=== PATIENT | male | born 1965 | race Two or more races ===

== ENCOUNTER 2017-06-12 10:51 | Inpatient (IN) | payer BC, OTHER ==
[~2017-06-12] VITALS: Ht 167.6 cm; Wt 91.0 kg
[~2017-06-12 10:51] MED LIST: ASPI325T17 PO; ATOR40TA PO; EMPA10TA PO; GABA300C10 PO; IPRA4AER PO; METF500T9 PO; OMEP10CA4 PO
[2017-06-12] MEDS ORDERED: MIDAZOLAM 1 MG/ML, 2ML ONE ×2 (12:38→13:28)
[2017-06-12] MEDS ORDERED: FENTANYL PF 100 MCG/2ML ONE ×2 (12:38)
[2017-06-12 12:39] VITALS: BP 138/86
[2017-06-12] MEDS ORDERED: LACTATED RINGERS 1,000 ML IV SCH (12:39)
[2017-06-12] MEDS ORDERED: ONDANSETRON 2MG/ML, 2ML ONE ×2 (12:40→13:42)
[2017-06-12] MEDS ORDERED: DEXAMETHASONE 4 MG/ML, 1ML ONE ×2 (12:40→13:42)
[2017-06-12] MEDS ORDERED: PROPOFOL 10 MG/ML, 20ML ONE (12:40)
[2017-06-12] MEDS ORDERED: CEFAZOLIN 1,000 MG ONE ×2 (12:40→13:42)
[2017-06-12] MEDS ORDERED: PROTAMINE SULFATE 10 MG/ML, 5ML ONE (12:47)
[2017-06-12] MEDS ORDERED: THROMBIN 5,000 UNIT VIAL TP ONE (12:47)
[2017-06-12] MEDS ORDERED: BUPIVACAINE/PF 0.25% ONE (12:47)
[2017-06-12] MEDS ORDERED: HEPARIN 1,000 UNITS/ML, 10ML ONE (12:47)
[2017-06-12] MEDS ORDERED: EPINEPHRINE 1 MG/ML, 1ML ONE (12:48)
[2017-06-12] MEDS ORDERED: FENTANYL PF 250 MCG/5ML ONE (13:28)
[2017-06-12] MEDS ORDERED: LIDOCAINE 4%, 4 ML SYR/CANN TP ONE (13:42)
[2017-06-12] MEDS ORDERED: SUCCINYLCHOLINE 20 MG/ML, 10ML ONE (13:42)
[2017-06-12] MEDS ORDERED: FENTANYL PF 100 MCG/2ML IV PRN (16:00)
[2017-06-12] MEDS ORDERED: hydrALAzine 20 MG/ML, 1ML IV PRN ×2 (16:00→18:30)
[2017-06-12] MEDS ORDERED: ACETAMINOPHEN 325 MG TABLET PO PRN ×2 (16:00→18:30)
[2017-06-12] MEDS ORDERED: MIDAZOLAM 1 MG/ML, 2ML IV PRN (16:00)
[2017-06-12] MEDS ORDERED: LABETALOL 5MG/ML, 20ML IV PRN ×2 (16:00→18:30)
[2017-06-12] MEDS ORDERED: HYDROmorphone 1 MG/ML, 1ML IV PRN (16:00)
[2017-06-12] MEDS ORDERED: ONDANSETRON 2MG/ML, 2ML IVPush PRN (16:00)
[2017-06-12] MEDS ORDERED: ALBUTEROL/IPRATROPIUM 2.5MG/0.5MG, 3 ML NPPB PRN ×2 (16:00→20:00)
[2017-06-12] MEDS ORDERED: OXYcodone 5 MG/5 ML ORAL.SOL UDC PO PRN (16:00)
[2017-06-12] MEDS ORDERED: EPHEDRINE 50 MG/ML, 1ML IVPush PRN (16:00)
[2017-06-12] MEDS ORDERED: ASPIRIN 325 MG TABLET ONE (16:15)
[2017-06-12] MEDS ORDERED: OXYcodone 5 MG/5 ML ORAL.SOL UDC ONE (16:15)
[2017-06-12] MEDS ORDERED: ASPIRIN 325 MG TABLET EC PO ONE (16:30)
[2017-06-12] MEDS ORDERED: CLOPIDOGREL 75 MG TABLET PO ONE (16:30)
[2017-06-12] MEDS ORDERED: morphine SULFATE 10 MG/ML, 1ML IV PRN (18:30)
[2017-06-12] MEDS ORDERED: ONDANSETRON 2MG/ML, 2ML IV PRN (18:30)
[2017-06-12] MEDS: LACTATED RINGERS 1,000 ML IV SCH (18:30)
[2017-06-12] MEDS: ALBUTEROL/IPRATROPIUM 2.5MG/0.5MG, 3 ML NPPB SCH (19:50)
[2017-06-12 20:05] VITALS: BP 117/87
[2017-06-12] MEDS: SODIUM CHLORIDE FLUSH 10ML SYR IVF SCH (21:00)
[2017-06-12] MEDS: GABAPENTIN 300 MG CAPSULE PO SCH (21:33)
[2017-06-12] MEDS: ATORVASTATIN 40 MG TABLET PO SCH (21:33)
[2017-06-12] MEDS: CEFAZOLIN PMX 2GM/50ML 50 ML IVPB SCH (21:34)
[2017-06-12] MEDS: NICOTINE 7 MG/24 HR PATCH.TD24 TD SCH (21:34)
[2017-06-12] MEDS: INSULIN REGULAR, HUMAN 100 UNITS/ML, 3ML MEDIUM DOSE SS SQ-INSULIN SCH (22:06)
[2017-06-12 23:02] VITALS: BP 121/60
[2017-06-13] MEDS: ALBUTEROL/IPRATROPIUM 2.5MG/0.5MG, 3 ML NPPB SCH (00:30)
[2017-06-13 03:24] VITALS: BP 115/71
[2017-06-13 05:08] LABS: HEMATOCRIT 45.5 % (39.2-51.8); HEMOGLOBIN 15.4 g/dL (13.7-18.0); WHITE BLOOD COUNT 11.6 x10^3/uL (3.4-10)
[2017-06-13 05:27] LABS: BLOOD UREA NITROGEN 17 mg/dL (7-18)
[2017-06-13] MEDS: LACTATED RINGERS 1,000 ML IV SCH ×2 (05:47→11:54)
[2017-06-13] MEDS: CEFAZOLIN PMX 2GM/50ML 50 ML IVPB SCH (05:47)
[2017-06-13] MEDS: INSULIN REGULAR, HUMAN 100 UNITS/ML, 3ML MEDIUM DOSE SS SQ-INSULIN SCH ×4 (06:06→21:39)
[2017-06-13 06:47] VITALS: BP 129/80
[2017-06-13] MEDS: OMEPRAZOLE 10 MG CAPSULE.DR PO SCH (08:18)
[2017-06-13] MEDS: ASPIRIN 325 MG TABLET EC PO SCH (08:19)
[2017-06-13] MEDS: ENOXAPARIN 40 MG/0.4 ML SQ SCH (08:19)
[2017-06-13] MEDS: LISINOPRIL 10 MG TABLET PO SCH (08:19)
[2017-06-13] MEDS: GABAPENTIN 300 MG CAPSULE PO SCH ×2 (08:19→21:38)
[2017-06-13] MEDS: CLOPIDOGREL 75 MG TABLET PO SCH (08:19)
[2017-06-13] MEDS: EMPAGLIFLOZIN 20 MG HOMEMEDPO SCH (08:24)
[2017-06-13] MEDS: SODIUM CHLORIDE FLUSH 10ML SYR IVF SCH ×2 (08:24→21:39)
[2017-06-13] MEDS ORDERED: DIPHENHYDRAMINE 25 MG CAPSULE PO PRN (09:00)
[2017-06-13 12:53] VITALS: BP 99/60
[2017-06-13] MEDS: HYDROcodone/APAP 5/325 TABLET PO PRN ×2 (16:41→21:38)
[2017-06-13 20:07] VITALS: BP 94/60
[2017-06-13] MEDS: ATORVASTATIN 40 MG TABLET PO SCH (21:38)
[2017-06-13] MEDS: NICOTINE 7 MG/24 HR PATCH.TD24 TD SCH (21:40)
[2017-06-14 01:41] VITALS: BP 103/63
[2017-06-14] MEDS: HYDROcodone/APAP 5/325 TABLET PO PRN ×3 (01:41→16:19)
[2017-06-14] MEDS: LACTATED RINGERS 1,000 ML IV SCH (02:08)
[2017-06-14] MEDS: INSULIN REGULAR, HUMAN 100 UNITS/ML, 3ML MEDIUM DOSE SS SQ-INSULIN SCH ×3 (07:00→15:47)
[2017-06-14 07:54] VITALS: BP 108/73
[2017-06-14] MEDS: CLOPIDOGREL 75 MG TABLET PO SCH (08:50)
[2017-06-14] MEDS: OMEPRAZOLE 10 MG CAPSULE.DR PO SCH (08:50)
[2017-06-14] MEDS: GABAPENTIN 300 MG CAPSULE PO SCH (08:50)
[2017-06-14] MEDS: ASPIRIN 325 MG TABLET EC PO SCH (08:50)
[2017-06-14] MEDS: SODIUM CHLORIDE FLUSH 10ML SYR IVF SCH (08:51)
[2017-06-14] MEDS: EMPAGLIFLOZIN 20 MG HOMEMEDPO SCH (08:51)
[2017-06-14] MEDS: LISINOPRIL 10 MG TABLET PO SCH (08:51)
[2017-06-14] MEDS: ENOXAPARIN 40 MG/0.4 ML SQ SCH (08:51)
[2017-06-14] MEDS ORDERED: ASPI-496 PO (16:42)
[2017-06-14] MEDS ORDERED: HYDR-3237 PO (16:43)
[2017-06-14] MEDS ORDERED: CLOP75TA PO (16:43)
[2017-06-14] MEDS ORDERED: DOCU240C53 PO (16:45)
[2017-06-14] MEDS ORDERED: NICO-485 TD (16:46)
== END 2017-06-14 17:10 | disposition home or self-care (01) | DRG 254 ==
LOC: ORIP 11:36 → 4NOR 17:34
PROVIDERS: ADMIT Surgery; ATTEND Surgery
PROC: 041L0JH Bypass Left Femoral Artery to Right Femoral Artery with Synthetic Substitute, Open Approach (ICD-10-PCS; 2017-06-12)
PROC: B4101ZZ Fluoroscopy of Abdominal Aorta using Low Osmolar Contrast (ICD-10-PCS; principal; 2017-06-12 13:30)
DX: I74.5 Embolism and thrombosis of iliac artery (principal); E11.51 Type 2 diabetes mellitus with diabetic peripheral angiopathy without gangrene; E78.5 Hyperlipidemia, unspecified; I10 Essential (primary) hypertension; J44.9 Chronic obstructive pulmonary disease, unspecified; F17.210 Nicotine dependence, cigarettes, uncomplicated; Z79.899 Other long term (current) drug therapy; Z79.1 Long term (current) use of non-steroidal anti-inflammatories (NSAID)
CPT/HCPCS: 36415; 37221; 75710; 80048; 82040; 82962; 85025; 86850; 86900; 94640; C1725; J0171; J0690; J1100; J1644; J1650; J1815; J2250; J2405; J2704; J2720; J3010; J3490; J7620; C1768; C1876; C1894; J0330; J7120; Q0163